=== PATIENT | male | born 1960 | race Caucasian/White ===

== ENCOUNTER 2023-07-16 11:10 | Emergency (ER) | payer OTHER, SELFPAY ==
[2023-07-16] VITALS (21 sets, daily range): BP systolic 123–139; BP diastolic 74–95; PULSE 61–76; RESP 12–20; TEMP 36.5; O2SAT 93–100
--- NOTE | ~2023-07-16 | CT_ITS ---
EXAMINATION: CT brain wo con DATE: 07/16/2023 13:00 INDICATION: Fall. TECHNIQUE: Computed tomography (CT) of the head was performed without intravenous contrast. The mA wa s adjusted according to patient size. Iterative reconstruction technique was employed. The dose-lengt h product was 605.33 mGy-cm. COMPARISON: None FINDINGS: There is no intracranial hemorrhage, acute infarction, or abnormal intracranial mass lesion . The ventricles are normal in size. There is mild mucosal thickening in the paranasal sinuses. The o rbits are normal. There is a trace right mastoid effusion. IMPRESSION: 1. Normal brain. Reviewed, dictated and finalized at location A. QUER IMPRESSION: 1. Normal brain.
--- NOTE | ~2023-07-16 | CT_ITS ---
EXAMINATION: CT cervical spine wo con DATE: 07/16/2023 13:00 INDICATION: Neck injury. TECHNIQUE: Computed tomography (CT) of the cervical spine was performed without intravenous contrast. Automated exposure control and iterative reconstruction technique were employed. The dose-length pro duct was 369.77 mGy-cm. COMPARISON: None FINDINGS: There is mild emphysema. There is 15 degrees dextroscoliosis of cervical spine. There is 2 mm anterolisthesis of C4 on C5. There are changes of anterior fusion procedure at C5-C6 with interbod y device, healed interbody bone graft, and anterior plate and screws. Vertebral body heights are norm al. There is moderately decreased disc height at C4-C5 and mildly decreased disc height at C6-C7. The following disc levels are specifically discussed: C2-C3: There is mild right and moderate left uncovertebral joint osteoarthritis. There is moderate ri ght and severe left facet joint osteoarthritis. There is mild left neural foraminal stenosis. There i s no central canal stenosis. C3-C4: There is mild bilateral uncovertebral joint osteoarthritis. There is moderate bilateral facet joint osteoarthritis. There is mild left neural foraminal stenosis. There is mild central canal steno sis. C4-C5: There is moderate bilateral uncovertebral joint osteoarthritis. There is mild right and severe left facet joint osteoarthritis. There is mild left neural foraminal stenosis. There is mild central canal stenosis. C5-C6: There is mild bilateral uncovertebral joint hypertrophy. There is mild right and severe left f acet joint osteoarthritis. There is mild left neural foraminal stenosis. There is mild central canal stenosis. C6-C7: There is moderate bilateral uncovertebral joint osteoarthritis. There is moderate and severe l eft facet joint osteoarthritis. There is no neural foraminal stenosis. There is mild central canal st enosis. C7-T1: There is no uncovertebral joint osteoarthritis. There is severe bilateral facet joint osteoart hritis. There is mild bilateral neural foraminal stenosis. There is no central canal stenosis. IMPRESSION: 1. No fracture. 2. Moderate cervical spondylosis. 3. Anterior fusion procedure at C5-C6. 4. Cervical dextroscoliosis. Reviewed, dictated and finalized at location A. R GIFTS DIRECTOR
--- NOTE | ~2023-07-16 | CT_ITS ---
EXAMINATION: CTA chest abdomen pelvis DATE: 07/16/2023 13:00 INDICATION: Chest and abdominal injury. TECHNIQUE: Computed tomographic angiography (CTA) of the chest, abdomen, and pelvis was performed wit h 100 mL Omnipaque-350 intravenous contrast. Automated exposure control and iterative reconstruction technique were employed. The dose-length product was 446.24 mGy-cm. Maximum intensity projection 3D-r econstructions of the aorta and other arteries were constructed by the technologist on a separate wor kstation. COMPARISON: CT abdomen and pelvis 04/22/2013 FINDINGS: CHEST CTA: There is mild scarring at the lung apices. There is mild emphysema. There is mild atelectasis bilater ally. There is a 3 mm nodule in right lower lobe, likely benign. Calcified right lung nodules are con sistent with old granulomatous disease. There are 4 mm and 3 mm nodules at left major fissure, likely benign. No pleural effusion. There is a 12 mm nodule in left thyroid lobe, likely not clinically sig nificant. The heart size is normal. No pericardial effusion. There is mild aortic atherosclerosis. No aneurysm or dissection. There is mild thoracic spondylosis. There are changes of anterior fusion pro cedures in cervical spine. ABDOMEN AND PELVIS CTA: There is a 4 mm cyst in the liver. There are changes of cholecystectomy. There is an 11 mm hyperenhan cing mass in the spleen, likely a hamartoma or hemangioma. The pancreas and adrenal glands are normal . There are cysts in the kidneys measuring up to 10 mm on the right. There are no dilated loops of caty wel. There are changes of right hemicolectomy. The prostate is mildly enlarged. Aortic atherosclerosi s is noted. There is no significant stenosis of celiac axis, superior mesenteric artery, the renal ar teries, or inferior mesenteric artery. There are no pathologically enlarged lymph nodes. There is no free intraperitoneal fluid. There is mild lumbar spondylosis. There is mild chronic height loss of L1 vertebral body. IMPRESSION: 1. Mild aortic atherosclerosis. No aneurysm or dissection. 2. Mild emphysema. Reviewed, dictated and finalized at location A. E SET UP PERSON
--- NOTE | 2023-07-16 11:15 | ECG_ITS ---
Measurements Intervals [place] Rate: 67 P: 78 MO: 163 QRS: 85 QRSD: 94 T: 77 QT: 408 QTc: 432 Interpretive Statements SINUS RHYTHM BORDERLINE R WAVE PROGRESSION, ANTERIOR LEADS BORDERLINE ST ABNORMALITY- INF/LAT LEADS BASELINE ARTIFACT- I, II, III, AVR, AVL, AVF BORDERLINE ECG NO PREVIOUS ECG AVAILABLE FOR COMPARISON Electronically Signed On 07-16-2023 11:46:29 FEED MANAGEMENT ADVISOR by Amor Benitez D.O.
--- NOTE | 2023-07-16 12:16 | ED.FALL ---
HPI - Fall General Chief Complaint: Fall Stated Complaint: fall Time Seen by Provider: 07/16/23 11:23 History of Present Illness HPI Narrative: 62-year-old male present to the emergency department for evaluation of lower abdominal pain after having a ground level fall yesterday. Patient states he was attempting to move a TV but slipped on some sand and fell backwards. Patient states the TV did not land on him but patient states he possibly struck his head does not think he had loss of consciousness. Patient complains of chest and abdominal pain today. Related Data Allergies Allergy/AdvReac Type Severity Reaction Status Date / Time No Known Allergies Allergy Unverified 07/24/21 16:21 Review of Systems Review of Systems: All systems reviewed & are unremarkable except as noted in HPI and below PMFSH Family History Family History (System 07/24/21 @ 16:21 by Tejas Stephens) Mother Family history of diabetes mellitus in first degree relative Family history of lung cancer Father Family history of heart disease in male family member before age 55 Other Diabetes mellitus Family history of arthritis Family history of obesity Family history of thyroid disease Hypertension Social History Social History (System 07/24/21 @ 16:21 by Tejas Stephens) Alcohol intake: current Course Course Emergency Course: 62-year-old male present to the emergency department for evaluation head neck back and abdominal pain after having a ground level fall yesterday. Patient declined any medications for pain control. Patient is afebrile but does have a leukocytosis of 11.6 and a stable hemoglobin of 15.2. CMP has no acute abnormalities UA shows no evidence of infection no hematuria. CT chest abdomen pelvis was ordered to evaluate for possible dissection due to the amount of abdominal pain the patient was having. CT head and neck were ordered due to the patient having had a neck pain and possible loss of consciousness. All imaging was negative. Patient was updated on the results of workup patient was comfortable plan for discharge and close follow-up. Vital Signs Vital signs: Vital Signs Temperature 97.7 F 07/16/23 11:06 Pulse Rate 70 07/16/23 11:06 Respiratory Rate 12 07/16/23 11:06 Blood Pressure 126/77 07/16/23 11:06 Pulse Oximetry 99 07/16/23 11:06 Oxygen Delivery Room Air 07/16/23 11:06 Temperature 97.7 F 07/16/23 11:06 Pulse Rate 68 07/16/23 13:46 Respiratory Rate 16 07/16/23 13:46 Blood Pressure 128/78 07/16/23 14:20 Pulse Oximetry 95 07/16/23 13:46 Oxygen Delivery Room Air 07/16/23 11:06 MDM - Fall Differential Diagnosis Differential diagnosis: Likely compression fracture, concussion with loss of consciousness and concussion without loss of consciousness Lab Data Attestation: I reviewed the patient's lab results. 07/16/23 12:42 07/16/23 12:50 Labs: Lab Results 07/16/23 07/16/23 Range/Units 12:42 12:50 WBC 11.6 H (4.5-10.0) K/mm3 RBC 4.74 (4.6-6.20) M/mm3 Hgb 15.2 (14.0-18.0) g/dL Hct 43.5 (42.0-52.0) % MCV 91.8 (80-100) fl MCH 32.1 (26-34) pg MCHC 34.9 (32-36) g/dl RDW 12.6 (11.5-14.5) % Plt Count 270 (150-375) k/mm3 MPV 10.2 (7.4-10.4) fl Immature Gran % (Auto) 0.3 (0-0.5) % Neut % (Auto) 76.5 H (45.5-73.1) % Lymph % (Auto) 15.7 L (18.3-44.2) % [place] % (Auto) 6.8 (2.6-8.5) % Eos % (Auto) 0.3 (0-4.4) % Baso % (Auto) 0.4 (0.2-1.2) % Lymph # (Auto) 1.82 (0.9-3.2) K/mm3 [place] # (Auto) 0.8 H (0.1-0.6) K/mm3 Eos # (Auto) 0.0 (0-0.3) K/mm3 Baso # (Auto) 0.1 (0.0-0.1) K/mm3 Abs Immat Gran (auto) 0.03 (0.00-0.031) K/mm3 Absolute Neuts (auto) 8.8 H (1.3-6.7) K/mm3 Absolute Nucleated RBC 0.0 (0.0-0.012) K/mm3 Nucleated RBC % 0.0 (0.0-0.2) % PT 13.9 (11.1-14.7) Seconds INR 1.0 APTT 30.6 (22.3-36.8) SECONDS Sodium 137 (137-145) mmol/
[2023-07-16] MEDS: ACETAMINOPHEN 500 MG TABLET 1000 MG PO (12:34)
[2023-07-16 12:52] LABS: Estimated CRCL calculation 81 ml/min; Estimated Glomerular Filt Rate > 60
[2023-07-16 12:54] LABS: Basophils Absolute Auto 0.1 K/mm3 (0.0-0.1); Basophils Percent Auto 0.4 % (0.2-1.2); Eosinophils Percent Auto 0.3 % (0-4.4); Hematocrit 43.5 % (42.0-52.0); Hemoglobin 15.2 g/dL (14.0-18.0); Immature Granulocyte Absolute 0.03 K/mm3 (0.00-0.031); Immature Granulocyte Percent A 0.3 % (0-0.5); Lymphocytes Absolute Auto 1.82 K/mm3 (0.9-3.2); Lymphocytes Percent Auto 15.7 % (18.3-44.2); Mean Corpuscular HGB Conc 34.9 g/dl (32-36); Mean Corpuscular Hemoglobin 32.1 pg (26-34); Mean Corpuscular Volume 91.8 fl (80-100); Mean Platelet Volume 10.2 fl (7.4-10.4); Monocytes Absolute Auto 0.8 K/mm3 (0.1-0.6); Monocytes Percent Auto 6.8 % (2.6-8.5); Neutrophils Absolute Auto 8.8 K/mm3 (1.3-6.7); Neutrophils Percent Auto 76.5 % (45.5-73.1); Platelet Count Result 270 k/mm3 (150-375); Red Blood Count 4.74 M/mm3 (4.6-6.20); Red Cell Distribution Width 12.6 % (11.5-14.5); White Blood Count 11.6 K/mm3 (4.5-10.0)
[2023-07-16 13:00] LABS: Lactic Acid Reflex 0.7 mmol/L (0.7-2.0)
[2023-07-16 13:02] LABS: Alanine Aminotransferase 25 U/L (6-50); Albumin Level 3.8 g/dL (3.5-5.1); Alkaline Phosphatase 72 U/L (38-126); Anion Gap 4 mmol/L (8-16); Appearance Urine Clear (Clear); Aspartate Amino Transferase 25 U/L (17-59); Bacteria Urine None Seen /hpf; Bilirubin Urine Negative (Negative); Bilirubin,Total 0.6 mg/dL (0.2-1.3); Blood Urea Nitrogen 10 mg/dL (9-20); Calcium 8.9 mg/dL (8.4-10.2); Carbon Dioxide 26 mmol/L (22-30); Chloride 107 mmol/L (98-107); Color Urine Yellow (Yellow); Estimated CRCL calculation 81 ml/min; Estimated Glomerular Filt Rate > 60; Glucose 87 mg/dL (65-110); Glucose Urine UA Negative (Negative); Ketones Urine Negative (Negative); Leukocyte Esterase Ur Negative LEU/UL (Negative); Need Manual Microscopic Reviewed; Nitrate Urine Negative (Negative); Non Pathogenic Casts 0-2; Potassium 3.5 mmol/L (3.4-5.0); Protein Urine Negative (Negative); RBC Urine 0-2 /hpf (0-2); Sodium 137 mmol/L (137-145); Specific Grav Ur 1.004 (1.001-1.035); Squamous Epithelial Cell Urine None seen /hpf (Few); Urobilinogen Urine 0.2 mg/dL (<2.0); WBC Urine 0-5 /hpf
[2023-07-16 13:03] LABS: Prothrombin Time 13.9 Seconds (11.1-14.7)
[2023-07-16 13:04] LABS: Add Urine Microscopic? YES; Partial Thromboplastin Time 30.6 SECONDS (22.3-36.8)
[2023-07-19 10:59] LABS: Estimated CRCL calculation 81 ml/min; Estimated Glomerular Filt Rate > 60
== END 2023-07-16 14:20 | disposition home or self-care (01) ==
PROVIDERS: Emergency Provider Emergency Medicine; PCP Family Medicine Sports Medicine
DX: S09.90XA Unspecified injury of head, initial encounter (principal); M54.2 Cervicalgia; R10.30 Lower abdominal pain, unspecified; M47.812 Spondylosis without myelopathy or radiculopathy, cervical region; W01.0XXA Fall on same level from slipping, tripping and stumbling without subsequent striking against object, initial encounter
CPT/HCPCS: 36415; 70450; 71275; 72125; 74174; 80053; 81001; 83605; 85025; 85610; 85730; 93005; 99284; A9270; Q9967